=== PATIENT | female | born 2000 | race Caucasian/White ===

== ENCOUNTER 2019-12-21 20:59 | Emergency (ER) | payer BC, OTHER ==
[~2019-12-21] VITALS: Ht 152.4 cm; Wt 55.3 kg
[~2019-12-21 20:59] MED LIST: ONDANSETRON ODT8 MG PO; PROTONIX40 MG PO
[2019-12-21] MEDS ORDERED: ONDANSETRON HCL INJ 2MG/ML 2ML 2 MG/ML VIAL IV STA (21:05)
[2019-12-21] MEDS ORDERED: KETOROLAC TROMETHAMINE 30 MG/ML VIAL IV STA (21:05)
[2019-12-21] MEDS ORDERED: KETOROLAC TROMETHAMINE 30 MG/ML VIAL ONE (21:50)
[2019-12-21] MEDS ORDERED: ONDANSETRON HCL INJ 2MG/ML 2ML 2 MG/ML VIAL ONE (21:50)
--- NOTE | 2019-12-21 22:05 | Emergency Department Note ---
History of Present Illnes History of Present Illness Chief Complaint: Abdominal Complaints History of Present Illness This is a 19 year old female abdominal pain and vomiting Onset (how long ago): day(s) (2) Location: RUQ PAIN Quality: DULL Radiation: Denies non-radiation, Denies back, Denies neck, Denies extremity, Denies abdomen, Denies periumbilical, Denies flank, Denies proximal, Denies distal, Denies other Severity: moderate Onset quality: gradual Duration (how long): day(s) (2) Timing of current episode: intermittent Progression: waxing and waning Chronicity: new Context: Reports recent illness Relieving factors: none Exacerbating factors: none Associated symptoms: Reports nausea/vomiting; Denies denies other symptoms, Denies confusion, Denies chest pain, Denies cough, Denies diaphoresis, Denies fever/chills, Denies headaches, Denies loss of appetite, Denies malaise, Denies rash, Denies seizure, Denies shortness of breath, Denies syncope, Denies weakness, Denies other Treatments prior to arrival: none Past Medical/Family History Physician Review I have reviewed the patient's past medical and family history. Any updates have been documented here. Past Medical History Past Medical History: None Past Surgical History: T&A Other Surgery: BREAT REDUCTION Social History Smoking Cessation: Never Smoker Alcohol Use: None Other Last Tetanus: UTD Review of Systems Review of Systems Constitutional: Reports no symptoms EENTM: Reports no symptoms Cardiovascular: Reports no symptoms Respiratory: Reports no symptoms Gastrointestinal: Reports as per HPI Genitourinary: Reports no symptoms Musculoskeletal: Reports no symptoms Integumentary: Reports no symptoms Neurological: Reports no symptoms Psychological: Reports no symptoms Endocrine: Reports no symptoms Hematological/Lymphatic: Reports no symptoms Physical Exam Related Data Allergies: Coded Allergies: No Known Allergies (Unverified , 07/14/18) Vital signs reviewed: Yes Physical Exam CONSTITUTIONAL Constitutional: Present well-developed, Present well-nourished HENT HENT: Present normocephalic, Present atraumatic, Present oropharynx clear/moist, Present nose normal HENT L/R: Present left ext ear normal, Present right ext ear normal EYES Eyes: Reports PERRL, Reports conjunctivae normal NECK Neck: Present ROM normal PULMONARY Pulmonary: Present effort normal, Present breath sounds normal CARDIOVASCULAR Cardiovascular: Present regular rhythm, Present heart sounds normal, Present capillary refill normal, Present normal rate GASTROINTESTINAL Abdominal: Present soft, Present bowel sounds normal, Present tender (RUQ) GENITOURINARY Genitourinary: Present exam deferred SKIN Skin: Present warm, Present dry MUSCULOSKELETAL Musculoskeletal: Present ROM normal NEUROLOGICAL Neurological: Present alert, Present oriented x 3, Present no gross motor or sensory deficits PSYCHOLOGICAL Psychological: Present mood/affect normal, Present judgement normal Results Laboratory Lab results reviewed: Yes Imaging Imaging results reviewed: Yes Assessment & Plan Medical Decision Making MDM GALL STONES GASTRIRTIS Reassessment Reassessment BETTER Assessment & Plan Final Impression: (1) Abdominal pain, right upper quadrant (2) Vomiting Depart Disposition: HOME, SELF-CARE Medications in the ED Ondansetron HCl 4 mg NOW STAT IV Last administered on 12/21/19at 21:54; Admin Dose 4 MG; Start 12/21/19 at 21:05; Stop 12/21/19 at 21:12; Status DC Ketorolac Tromethamine 15 mg ONCE STAT IV Last administered on 12/21/19at 21:54; Admin Dose 15 MG; Start 12/21/19 at 21:05; Stop 12/21/19 at 21:12; Status DC Ketorolac Tromethamine 30 mg STK-MED ONCE .ROUTE ; Start 12/21/19 at 21:50; Stop 12/21/19 at 21:46; Status DC Ondansetron HCl 4 mg STK-MED ONCE .ROUTE ; Start 12/21/19 at 21:50; Stop 12/21/19 at 21:46; Status DC CHIO CALDWELL MD Dec 21, 2019 22:05
[2019-12-21 22:15] VITALS: BP 126/66
--- OUTSIDE RECORDS SUMMARY | 2019-12-21 22:32 | XMS REPORT | Continuity of Care Document ---
Author Author [facility] Organization [facility] Address [address] [place] [address] Phone Unavailable Care Team Providers Care Director Food And Beverage Name Role Phone NO, PCP PCP Unavailable Anastasia LENNON Attphychad Unavailable Problems This patient has no known problems. Allergies, Adverse Reactions, Alerts This patient has no known allergies or adverse reactions. Medications Ordered Medication Name Filled Medication Name Start Date Stop Da te Current Medication? Ordering Clinician Indication Dosage Frequency Signature (SIG) Comments Components Source Ondansetron (Ondansetron Odt) 8 Mg Tab.rapdis, 4 Mg Or al Ondansetron (Ondansetron Odt) 8 Mg Tab.rapdis, 4 Mg Oral 2018-07-14 00:00:00 2018-06-19 8 00:00:00 Laura Lennon Md 4 Three Times A Day for Nausea Vomiting [facility] Pantoprazole Sodium (Protonix) 40 Mg Suspdr.pkt, 40 Mg Oral Pantoprazole Sodium (Protonix) 40 Mg Suspdr.pkt, 40 Mg Oral 2018-07-14 00:00:00 2018-07-15 00:00:00 Laura Lennon Md 40 Daily [facility] Procedures This patient has no known procedures. Encounters Start Date/Time End Date/Time [facility] ID Source 2018-07-15 00:06:00 2018-07-15 19:05:00 Discharged Inpatient (obs) 1 [facility] [id number] Results Test Description Test Time Test Comments Results Result Comments Source Sodium Level 2018-07-15 09:59:00 Test Item Sodium Level (test code = 2951-2) 136 136-145 [facility] [id number] 09:59:00* Test Item Value Reference Range Interpretation Comments Potassium Level (test code = 2823-3) 4.2 3.5-5.1 [facility]ide [id number] 09:59:00* Test Item Value Reference Range Interpretation Comments Chloride Level (test code = 2075-0) 108 98-107 H [facility] CenterCarbon Dioxide [id number] 09:59:00* Test Item Value Reference Range Interpretation Comments Carbon Dioxide Level (test code = 2028-9) 22 22-29 [facility]Anion [id number] 09:59:00* Test Item Value Reference Range Interpretation Comments Anion Gap (test code = 96956-9) 10.2 8-16 [facility] Urea [id number] 09:59:00* Test Item Value Reference Range Interpretation Comments Blood Urea Nitrogen (test code = 3094-0) 5 7-26 L [facility] CenterCreatinine2019-02-28 09:59:00* Test Item Value Reference Range Interpretation Comments Creatinine (test code = 2160-0) 0.76 0.57-1.11 [facility] CenterBUN/Creatinine Oaxxn1397-06-16 09:59:00* Test Item Value Reference Range Interpretation Comments BUN/Creatinine Ratio (test code = 3097-3) 7 6-25 [facility] CenterEstimat Glomerular Filtration Rate 2018-07-15 09:59:00* Test Item Value Reference Range Interpretation Comments Estimat Glomerular Filtration Rate (test code = 157777296) > 60 >60 Ranges were taken from the National Kidney Disease Education Program and the [facility] literature.Reference ranges:60 or greater: Teljbh23-44 ( for 3 consecutive months): Chronic kidney disease 15 or less: Kidney failureHendrick Medical CenterGlucose Krkad6812-59-31 09:59:00* Test Item Value Reference Range Interpretation Comments Glucose Level (test code = IZE1763) 87 74-118 [facility] CenterCalcium Jfvrd1955-71-29 09:59:00* Test Item Value Reference Range Interpretation Comments Calcium Level (test code = 57761-7) 8.5 8.4-10.2 [facility] CenterWhite Blood [id number] 09:40:00* Test Item Value Reference Range Interpretation Comments White Blood Count (test code = 6690-2) 6.35 4.8-10.8 [facility] CenterRed Blood Hejud3486-81-85 09:40:00* Test Item Value Reference Range Interpretation Comments Red Blood Count (test code = 789-8) 3.76 3.6-5.1 [facility] CenterHemoglobin2019-02-28 09:40:00* Test Item Value Reference Range Interpretation Comments Hemoglobin (test code = 76400-5) 11.3 12.0-16.0 L [facility] CenterHematocrit2019-02-28 09:40:00* Test Item Value Reference Range Interpretation Comments Hematocrit (test code = 4544-3) 33.6 34.2-44.1 L [facility] CenterMean Corpuscular Lxglsj4808-59-59 09:40:00* Test Item Value Reference Range Interpretation Comments Mean Corpuscular Volume (test code = 787-2) 89.4 81-99 [facility] CenterMean Corpuscular Sfxaqmxpuu4430-46-33 09:40:00* Test Item Value Reference Range Interpretation Comments Mean Corpuscular Hemoglobin (test code = 785-6) 30.1 28-32 [facility] CenterMean Corpuscular Hemoglobin Concent 2018-07-15 09:40:00* Test Item Value Reference Range Interpretation Comments Mean Corpuscular Hemoglobin Concent (test code = 786-4) 33.6 31-35 [facility] CenterRed Cell Distribution Ewjyp7370-30-39 09:40:00* Test Item Value Reference Range Interpretation Comments Red Cell Distribution Width (test code = 16610-4) 13.3 11.7 -14.4 [facility] CenterPlatelet [id number] 09:40:00* Test Item Value Reference Range Interpretation Comments Platelet Count (test code = 777-3) 208 140-360 [facility] CenterLipase2019-02-28 00:45:00* Test Item Value Reference Range Interpretation Comments Lipase (test code = 3040-3) 32 8-78 [facility] CenterCT ABD/PEL WITH [id number]-[id number] 23:26:00 [facility] [address] [address] Patient Name: LILIANA FORBES MR #: [id number] : 2000 Age/Sex: 18/F Req #: [id number] Adm Physician: Ordered by: CARIE LENNON MD Report #: [id number] Location: [facility] Room/Bed: Procedure: [id number] HOPD/CT ABD/PEL WITH CONTRAST-HOPD Exam Date: 07/14/18 Exam Time: 2300 REPORT STA TUS: Signed CT Abdomen And Pelvis with Intravenous Contrast INDICATION: Nausea, vomiting for 3 days, diarrhea and constipation [id number] TECHNIQUE: Thin collimation axial images obtained from the diaphragm to the level of the pubic symphysis following the uneventful administration of 100 cc of low osmolar, nonionic intravenous contrast. Dose reduction techniques used: Automated exposure control, adjustment of the mAs and/or kVp according t o patient size, standardized low-dose protocol, and/or iterative reconstructio n technique. RADIATION DOSE: Total DLP: 525.87 mGy*cm Estimated effective dose: (DLP x 0.015 x size factor) mSv CTDIvol has bee n reviewed. It is below the limits set by the Radiation Protocol Committee (RP C). COMPARISON: None. ABDOMEN FINDINGS: Lung Bases: Clear. The visualized portions of the mediastinum are normal.. Liver: Normal attenuati on. No evidence for mass. Gallbladder: Present and appears normal. No bili shari ductal dilatation. Pancreas: Normal attenuation without mass or ductal dilatation. Spleen: Normal in size. No evidence of mass.. Adrenal Gla nds: No evidence for mass. Kidneys: Right: Normal enhancement. No so ft tissue mass. No hydronephrosis. Left: Normal enhancement. No soft tis marina mass. No hydronephrosis. Lymph Nodes: No enlarged abdominal or retrope ritoneal lymph nodes. Aorta: Normal in diameter PELVIS FINDINGS: Bowel: Stomach: Normal in caliber with normal wall thickness. Small Mckinney el: Inspissated enteric contents in the distal small bowel loops in the right lower quadrant extending to the terminal ileum. The small bowel loops measure up to 2.3 cm. No mucosal hyperemia or surrounding inflammation. No fluid in th e small bowel mesentery. Large Bowel: Normal in caliber with normal wall thi ckness. Appendix: Normal appendix. Bladder: Under distended. The u terus is present and retroflexed in position. There is a tampon in the vagina. No adnexal mass. Peritoneum/retroperitoneum: Trace amount of pelvic free f luid. No loculated fluid collection. Bones: No focal osseous lesions. Soft tissues: Unremarkable for age. IMPRESSION: 1. Inspissated ent elian contents in the distal small bowel suggestive of very low-grade partial s mall bowel obstruction. No evidence of small or large bowel inflammation. Norm al appendix 2. No evidence of renal calculus or obstructive uropathy. No solid organ abnormality. Signed by: Dr. Fe Randle MD on 07/14/19 11:31 PM Dictated By: FE RANDLE MD 30 Transcribed By: ADAN on 07/14/182330 COPY TO: CARIE LENNON MD
--- NOTE | 2019-12-21 22:43 | Diagnostic Imaging Report ---
EXAM: Right Upper Quadrant Ultrasound with Doppler INDICATION: ^pain ^[id number] ^[id number] COMPARISON: CT dated 07/14/2018.. TECHNIQUE: Transverse and longitudinal images of the right upper abdomen were obtained. Grayscale, color Doppler and spectral waveform analysis of the hepatic vasculature and splenic vein were performed. FINDINGS: Liver: Size: 13.4 cm in the right midclavicular line, normal Appearance: Normal echogenicity, smooth contour Mass: No focal masses Gallbladder: Stones/Sludge: None Wall: 0.2 cm Appearance: No pericholecystic fluid or hydrops. Sonographic Ruiz's Sign: Negative Bile Ducts: Intrahepatic Ducts: No dilatation Extrahepatic Ducts: Common bile duct measures 0.32 cm, no dilatation Pancreas: Partially visualized due to overlying bowel gas.. Right Kidney: Size: 8.8 cm Echogenicity: Normal Parenchymal thickness: Normal Collecting system: No hydronephrosis Stones: None Cyst/Mass: None Vessels: Main Portal Vein: Diameter: 0.7 cm, normal. Normal flow direction. Aorta: Visualized portions are normal Inferior Vena Cava: Visualized portions are normal Free Fluid: No ascites or pleural effusion IMPRESSION: 1. No evidence of acute cholecystitis. 2. Diffuse mildly increased echogenicity of the liver suggestive of hepatic steatosis. Signed by: Sami Mendoza MD on 12/21/2019 10:40 PM
== END 2019-12-21 22:15 | disposition home or self-care (01) ==
LOC: FSED 21:30
DX: R10.11 Right upper quadrant pain (principal); R11.2 Nausea with vomiting, unspecified
CPT/HCPCS: 76705; 80053; 80076; 81003; 81025; 85025; 96374; 96376; 99284; J1885; J2405